=== PATIENT | female | born 1985 | race Caucasian/White ===

== ENCOUNTER 2017-09-27 09:31 | Emergency (ER) | payer OTHER ==
[~2017-09-27] VITALS: Ht 165.1 cm; Wt 140.3 kg
[2017-09-27 09:31] VITALS: BP 133/98
== END 2017-09-27 10:46 | disposition home or self-care (01) ==
LOC: M ED 09:31
DX: J02.9 Acute pharyngitis, unspecified (principal); Z87.891 Personal history of nicotine dependence

== ENCOUNTER → 2017-11-27 | Outpatient (REF) | payer OTHER | LOC: M SFHCWAGY 11:15 | DX: Z12.4 Encounter for screening for malignant neoplasm of cervix (principal) ==

== ENCOUNTER 2018-01-14 09:52 | Emergency (ER) | payer OTHER | END 2018-01-14 12:05 | disposition home or self-care (01) | LOC: M ED 09:52 | DX: S93.402A Sprain of unspecified ligament of left ankle, initial encounter (principal); S93.602A Unspecified sprain of left foot, initial encounter; X50.0XXA Overexertion from strenuous movement or load, initial encounter; Y92.410 Unspecified street and highway as the place of occurrence of the external cause; Z87.891 Personal history of nicotine dependence | CPT/HCPCS: 73610 ==

== ENCOUNTER → 2018-06-03 | Outpatient (REF) | payer OTHER ==
[2018-06-03 17:52] LABS: HEMATOCRIT 39.8 % (36.0-47.0)
[2018-06-03 19:02] LABS: FREE T4 0.89 NG/DL (0.76-1.46)
== END ==
LOC: M SFHCWAGY 15:21
DX: N92.0 Excessive and frequent menstruation with regular cycle (principal)
CPT/HCPCS: 84443

== ENCOUNTER → 2018-06-07 | Outpatient (CLI) | payer OTHER | LOC: M WHC 13:59 | DX: N92.0 Excessive and frequent menstruation with regular cycle (principal); Z97.5 Presence of (intrauterine) contraceptive device; N94.6 Dysmenorrhea, unspecified | CPT/HCPCS: 76830 ==

== ENCOUNTER → 2021-10-22 | Outpatient (REF) | payer OTHER ==
[~2021-10-22] MED LIST: NAPR-837 PO
[2021-10-22 11:53] LABS: HEMATOCRIT 39.1 % (36.0-47.0); HEMOGLOBIN 13.4 g/dl (12.0-15.5); MEAN CORPUSCULAR HEMOGLOBIN 29.3 pg (27.0-33.0); MEAN CORPUSCULAR HGB CONC 34.3 g/dl (32.0-36.5); MEAN CORPUSCULAR VOLUME 85.4 fl (80.0-96.0); PLATELET COUNT, AUTOMATED 248 10^3/uL (150-450); RED BLOOD COUNT 4.58 10^6/uL (4.00-5.40)
[2021-10-22 12:57] LABS: HEMOGLOBIN A1c 5.1 %
[2021-10-22 13:15] LABS: HCG, SERUM QUANTITATIVE 26935 MIU/ML; HEPATITIS B SURFACE ANTIGEN NEGATIVE (NEGATIVE); HEPATITIS C VIRUS ABY INDEX 0.1 INDEX (<0.8); HIV 1&2 SCREEN CENTAUR NEGATIVE (NEGATIVE)
== END ==
LOC: M LAB REF 11:25
PROVIDERS: ATTEND Advanced Practice Midwife
DX: O36.80X0 Pregnancy with inconclusive fetal viability, not applicable or unspecified (principal); Z3A.00 Weeks of gestation of pregnancy not specified

== ENCOUNTER → 2021-11-06 | Outpatient (REF) | payer OTHER | LOC: M LAB REF 17:19 | PROVIDERS: ATTEND Obstetrics & Gynecology | DX: O36.80X0 Pregnancy with inconclusive fetal viability, not applicable or unspecified (principal) ==

== ENCOUNTER → 2022-08-06 | Outpatient (CLI) | payer OTHER ==
[2022-08-06 13:59] LABS: HEMATOCRIT 39.4 % (36.0-47.0); HEMOGLOBIN 12.7 g/dl (12.0-15.5); MEAN CORPUSCULAR HEMOGLOBIN 28.1 pg (27.0-33.0); MEAN CORPUSCULAR HGB CONC 32.2 g/dl (32.0-36.5); MEAN CORPUSCULAR VOLUME 87.2 fl (80.0-96.0); PLATELET COUNT, AUTOMATED 201 10^3/uL (150-450); RED BLOOD COUNT 4.52 10^6/uL (4.00-5.40); WHITE BLOOD COUNT 6.1 10^3/uL (4.0-10.0)
[2022-08-06 16:09] LABS: GC DNA AMPLIFICATION NEGATIVE (NEGATIVE)
[2022-08-06 22:31] LABS: HEPATITIS C VIRUS ABY INDEX < 0.0 INDEX (<0.8); HIV 1&2 SCREEN CENTAUR NEGATIVE (NEGATIVE)
== END ==
LOC: M PLALAB 10:25
PROVIDERS: ATTEND Obstetrics & Gynecology
DX: O34.211 Maternal care for low transverse scar from previous cesarean delivery (principal)

== ENCOUNTER → 2022-10-07 | Outpatient (CLI) | payer OTHER | LOC: M WHC 10:41 | PROVIDERS: ATTEND Specialist | DX: Z34.82 Encounter for supervision of other normal pregnancy, second trimester (principal) ==

== ENCOUNTER → 2022-11-14 | Outpatient (CLI) | payer OTHER | LOC: M WHC 09:25 | PROVIDERS: ATTEND Obstetrics & Gynecology | DX: Z36.2 Encounter for other antenatal screening follow-up (principal) ==

== ENCOUNTER → 2022-11-28 | Outpatient (CLI) | payer OTHER | LOC: M WHC 11:28 | PROVIDERS: ATTEND Obstetrics & Gynecology | DX: O36.8920 Maternal care for other specified fetal problems, second trimester, not applicable or unspecified (principal); Z3A.23 23 weeks gestation of pregnancy ==

== ENCOUNTER → 2022-12-31 | Outpatient (CLI) | payer OTHER ==
[~2022-12-31] MED LIST changes: +PNV1TABL16 PO
[2022-12-31 14:20] LABS: HEMATOCRIT 36.5 % (36.0-47.0); HEMOGLOBIN 11.8 g/dl (12.0-15.5); MEAN CORPUSCULAR HEMOGLOBIN 28.2 pg (27.0-33.0); MEAN CORPUSCULAR HGB CONC 32.3 g/dl (32.0-36.5); MEAN CORPUSCULAR VOLUME 87.3 fl (80.0-96.0); PLATELET COUNT, AUTOMATED 200 10^3/uL (150-450); RED BLOOD COUNT 4.18 10^6/uL (4.00-5.40); WHITE BLOOD COUNT 7.3 10^3/uL (4.0-10.0)
[2022-12-31 15:39] LABS: GC DNA AMPLIFICATION NEGATIVE (NEGATIVE)
== END ==
LOC: M PLALAB 10:49
PROVIDERS: ATTEND Specialist
DX: Z34.82 Encounter for supervision of other normal pregnancy, second trimester (principal)

== ENCOUNTER 2023-01-01 12:43 | Inpatient (IN) | payer OTHER ==
[~2023-01-01] VITALS: Ht 165.1 cm; Wt 128.2 kg
[~2023-01-01 12:43] MED LIST changes: -IBUP80TA PO; -PERCOCET PO; -PNV1TABL16 PO
[2023-01-01 13:06] VITALS: BP 145/73
[2023-01-01] MEDS ORDERED: PNV1TABL16 PO (13:16)
[2023-01-01] MEDS: BETAMETHASONE SOLUSPAN 6MG/ML 5ML VIAL IM SCH (13:40)
[2023-01-01] MEDS ORDERED: LR 1,000 ML IV ONE (14:30)
[2023-01-01] MEDS ORDERED: ceFAZolin SOD 3 GM in IV 1 EA IV ONE (15:00)
[2023-01-01] MEDS ORDERED: BICITRA 30ML SOLN UDC PO ONE (15:00)
[2023-01-01 15:04] LABS: HEMATOCRIT 38.1 % (36.0-47.0); HEMOGLOBIN 12.6 g/dl (12.0-15.5); MEAN CORPUSCULAR HEMOGLOBIN 28.6 pg (27.0-33.0); MEAN CORPUSCULAR HGB CONC 33.1 g/dl (32.0-36.5); MEAN CORPUSCULAR VOLUME 86.6 fl (80.0-96.0); PLATELET COUNT, AUTOMATED 198 10^3/uL (150-450); WHITE BLOOD COUNT 8.3 10^3/uL (4.0-10.0)
[2023-01-01] MEDS ORDERED: MORPHINE PRES-FREE INJ 10 MG/10 ML VIAL As Ordered ONE (15:07)
[2023-01-01] MEDS ORDERED: OXYTOCIN 30UNITS IN 0.9% NaCl 500ML IV BAG As Ordered ONE ×2 (15:09→16:38)
[2023-01-01] MEDS ORDERED: LACTATED RINGER'S 1000 ML IV STA (15:13)
[2023-01-01] MEDS ORDERED: ceFAZolin 2 GM/D5W 50 ML IV BAG As Ordered ONE (15:14)
[2023-01-01] MEDS ORDERED: ceFAZolin SOD 1 GM in D5W MINI-BAG PLUS 50 ML IV ONE (15:15)
[2023-01-01] MEDS ORDERED: ceFAZolin SOD 2 GM in IV 1 EA IV ONE (15:15)
[2023-01-01] MEDS ORDERED: BICITRA 30ML SOLN UDC As Ordered ONE (15:15)
[2023-01-01] MEDS ORDERED: TRANEXAMIC ACID INJection 1,000 MG in NS 100 ML IV PRN (15:15)
[2023-01-01] MEDS ORDERED: LR 1,000 ML IV SCH (15:15)
[2023-01-01] MEDS ORDERED: METHYLERGONOVINE MALEATE 0.2MG/ML 1ML VIAL IM PRN (15:15)
[2023-01-01] MEDS ORDERED: ONDANSETRON 4MG 2ML VIAL As Ordered ONE (15:53)
[2023-01-01] MEDS ORDERED: KETOROLAC 60MG 2ML VIAL As Ordered ONE (15:53)
[2023-01-01] MEDS ORDERED: OXYTOCIN INJ 10UNITS/ML 1ML VIAL As Ordered ONE (15:54)
[2023-01-01 16:09] LABS: CORD GAS ABE V -6.2; CORD GAS HCO3 V 20.1 MEQ/L; CORD GAS O2 SAT V 54.6 %; CORD GAS PCO2 V 42.6 mmHg; CORD GAS PH V 7.292 UNITS; CORD GAS PO2 V 24.5 mmHg; CORD GAS SBC V 18.4 MEQ/L; CORD GAS TCO2 V 21.4 MEQ/L
[2023-01-01 16:11] LABS: CORD GAS ABE A -7.4; CORD GAS HCO3 A 20.4 MEQ/L; CORD GAS O2 SAT A 63.1 %; CORD GAS PCO2 A 49.6 mmHg; CORD GAS PH A 7.233 UNITS; CORD GAS PO2 A 28.9 mmHg; CORD GAS SBC A 17.8 MEQ/L
[2023-01-01] MEDS ORDERED: ONDANSETRON 4MG 2ML VIAL IV PRN (16:40)
[2023-01-01] MEDS ORDERED: PERCOCET 5MG/325MG TAB PO PRN ×2 (16:40)
[2023-01-01] MEDS ORDERED: OXYTOCIN DRIP 30 UNITS in IV 1 EA IV SCH (16:40)
[2023-01-01] MEDS ORDERED: RHOGAM 300MCG (1500IU) INJ IM SCH (16:40)
[2023-01-01] MEDS ORDERED: SIMETHICONE 80MG CHEW TAB PO PRN (16:40)
[2023-01-01] MEDS ORDERED: MOM 30ML SUSPENSION UDC PO PRN (16:40)
[2023-01-01 19:30] VITALS: BP 125/67
[2023-01-01 20:00] VITALS: BP 131/81
[2023-01-01] MEDS: DOCUSATE SODIUM 100MG CAPSULE PO SCH (20:14)
[2023-01-01 20:30] VITALS: BP 121/59
[2023-01-01 21:30] VITALS: BP 119/57
[2023-01-01] MEDS: KETOROLAC 30 MG/ML 1ML VIAL IV SCH (21:56)
[2023-01-01] MEDS: LR 1,000 ML IV SCH (21:57)
[2023-01-01 22:30] VITALS: BP 123/59
[2023-01-02 02:00] VITALS: BP 109/64
[2023-01-02] MEDS: KETOROLAC 30 MG/ML 1ML VIAL IV SCH ×2 (03:58→10:09)
[2023-01-02 06:00] VITALS: BP 113/67
[2023-01-02] MEDS: LR 1,000 ML IV SCH ×2 (06:05→07:40)
[2023-01-02 06:19] LABS: HEMATOCRIT 29.1 % (36.0-47.0); MEAN CORPUSCULAR HEMOGLOBIN 29.1 pg (27.0-33.0); MEAN CORPUSCULAR HGB CONC 33.7 g/dl (32.0-36.5); MEAN CORPUSCULAR VOLUME 86.4 fl (80.0-96.0); PLATELET COUNT, AUTOMATED 188 10^3/uL (150-450); RED BLOOD COUNT 3.37 10^6/uL (4.00-5.40); WHITE BLOOD COUNT 11.4 10^3/uL (4.0-10.0)
[2023-01-02 06:28] LABS: HEMOGLOBIN 9.8 g/dl (12.0-15.5)
[2023-01-02] MEDS ORDERED: IBUP80TA PO (06:51)
[2023-01-02] MEDS ORDERED: PERCOCET PO (06:51)
[2023-01-02] MEDS: PRENATAL VITAMINS CHEWABLE TABLET PO SCH (09:35)
[2023-01-02] MEDS: DOCUSATE SODIUM 100MG CAPSULE PO SCH ×2 (09:35→19:37)
[2023-01-02 10:00] VITALS: BP 110/61
[2023-01-02 14:00] VITALS: BP 112/60
[2023-01-02] MEDS: BETAMETHASONE SOLUSPAN 6MG/ML 5ML VIAL IM SCH (14:00)
[2023-01-02] MEDS: IBUPROFEN 800 MG TAB PO SCH (17:45)
[2023-01-02 18:00] VITALS: BP 118/58
[2023-01-02 22:30] VITALS: BP 119/64
[2023-01-03] MEDS: IBUPROFEN 800 MG TAB PO SCH ×2 (02:09→09:41)
[2023-01-03 02:17] VITALS: BP 109/58
[2023-01-03 05:50] VITALS: BP 102/59
[2023-01-03] MEDS ORDERED: MEASLES,MUMPS,RUBELLA VACCINE INJ (MMR-II) SC.IMMUN ONE (09:00)
[2023-01-03] MEDS: PRENATAL VITAMINS CHEWABLE TABLET PO SCH (09:40)
[2023-01-03] MEDS: DOCUSATE SODIUM 100MG CAPSULE PO SCH (09:40)
[2023-01-03 10:00] VITALS: BP 126/68
== END 2023-01-03 12:50 | disposition home or self-care (01) | DRG 540 ==
LOC: M LDO 12:43 → M LDI 14:51 → M OBS 19:34
PROVIDERS: ADMIT Obstetrics & Gynecology; ATTEND Obstetrics & Gynecology
PROC: 10D00Z1 Extraction of Products of Conception, Low, Open Approach (ICD-10-PCS; principal; 2023-01-01 15:52)
DX: O36.5930 Maternal care for other known or suspected poor fetal growth, third trimester, not applicable or unspecified (principal); O32.1XX0 Maternal care for breech presentation, not applicable or unspecified; Z3A.30 30 weeks gestation of pregnancy; O36.8330 Maternal care for abnormalities of the fetal heart rate or rhythm, third trimester, not applicable or unspecified; O34.211 Maternal care for low transverse scar from previous cesarean delivery; Z37.0 Single live birth; O09.523 Supervision of elderly multigravida, third trimester; O99.214 Obesity complicating childbirth; E66.9 Obesity, unspecified

== ENCOUNTER → 2023-01-01 | Outpatient (CLI) | payer OTHER ==
[~2023-01-01] MED LIST changes: +IBUP80TA PO; +PERCOCET PO
== END ==
LOC: M RAD 10:25
PROVIDERS: ATTEND Specialist
DX: O36.5990 Maternal care for other known or suspected poor fetal growth, unspecified trimester, not applicable or unspecified (principal)

== ENCOUNTER → 2023-06-10 | Outpatient (REF) | payer OTHER ==
[~2023-06-10] MED LIST changes: +IBUP80TA PO; +PERCOCET PO; +PNV1TABL16 PO
== END ==
LOC: M SFHCWAGY 09:58
PROVIDERS: ATTEND Obstetrics & Gynecology
DX: Z01.419 Encounter for gynecological examination (general) (routine) without abnormal findings (principal)

== ENCOUNTER → 2023-06-24 | Outpatient (CLI) | payer OTHER | LOC: M WHC 11:41 | PROVIDERS: ATTEND Obstetrics & Gynecology | DX: N93.8 Other specified abnormal uterine and vaginal bleeding (principal) ==

== ENCOUNTER → 2023-06-24 | Outpatient (CLI) | payer OTHER ==
[2023-06-24 16:10] LABS: HEMATOCRIT 40.1 % (36.0-47.0); MEAN CORPUSCULAR HEMOGLOBIN 28.4 pg (27.0-33.0); MEAN CORPUSCULAR HGB CONC 32.4 g/dl (32.0-36.5); MEAN CORPUSCULAR VOLUME 87.6 fl (80.0-96.0); PLATELET COUNT, AUTOMATED 255 10^3/uL (150-450); RED BLOOD COUNT 4.58 10^6/uL (4.00-5.40); WHITE BLOOD COUNT 6.3 10^3/uL (4.0-10.0)
[2023-06-24 16:42] LABS: THYROID STIMULATING HORMONE 1.604 uIU/ML (0.55-4.78)
[2023-06-24 16:45] LABS: FREE T4 1.04 NG/DL (0.89-1.76)
== END ==
LOC: M PLALAB 11:48
PROVIDERS: ATTEND Obstetrics & Gynecology
DX: N93.8 Other specified abnormal uterine and vaginal bleeding (principal)

== ENCOUNTER 2023-07-10 08:33 | Day surgery (SDC) | payer OTHER ==
[~2023-07-10] VITALS: Ht 165.1 cm; Wt 123.0 kg
[~2023-07-10 08:33] MED LIST changes: +KETOROLAC 60MG 2ML VIAL As Ordered ONE; +LIDOCAINE 2% 100MG/5ML SDV (FOR ANES.) As Ordered ONE; +MIDAZOLAM INJ 2MG/2ML VIAL As Ordered ONE; +ONDANSETRON 4MG 2ML VIAL As Ordered ONE; +ROCURONIUM BROMIDE 50MG/5ML VIAL As Ordered ONE; +SUGAMMADEX SODIUM 500 MG/5 ML VIAL (BRIDION) As Ordered ONE; +UNRESOLVED CLARIFICATION ENTRY XX SCH; +fentaNYL 250 MCG/5 ML INJECTION As Ordered ONE; +propofoL 200 MG/20 ML VIAL As Ordered ONE
[2023-07-10] MEDS ORDERED: LR 1,000 ML IV SCH ×2 (08:40→12:30)
[2023-07-10] MEDS ORDERED: ceFAZolin SOD 1 GM in D5W MINI-BAG PLUS 50 ML IV ONE (08:55)
[2023-07-10] MEDS ORDERED: ceFAZolin SOD 2 GM in IV 1 EA IV ONE (09:00)
[2023-07-10 09:18] LABS: HEMATOCRIT 38.3 % (36.0-47.0); HEMOGLOBIN 12.6 g/dl (12.0-15.5); MEAN CORPUSCULAR HEMOGLOBIN 27.8 pg (27.0-33.0); MEAN CORPUSCULAR HGB CONC 32.9 g/dl (32.0-36.5); MEAN CORPUSCULAR VOLUME 84.5 fl (80.0-96.0); PLATELET COUNT, AUTOMATED 235 10^3/uL (150-450); RED BLOOD COUNT 4.53 10^6/uL (4.00-5.40); WHITE BLOOD COUNT 5.8 10^3/uL (4.0-10.0)
[2023-07-10] MEDS ORDERED: ACETAMINOPHEN 1000MG 100ML IV BAG As Ordered ONE (10:36)
[2023-07-10] MEDS ORDERED: HYDROMORPHONE HCL 0.5 MG/ 0.5 ML SYRINGE IV PRN (12:30)
[2023-07-10] MEDS ORDERED: ONDANSETRON 4MG 2ML VIAL IV PRN (12:30)
[2023-07-10] MEDS ORDERED: fentaNYL 100 MCG/2 ML INJECTION IV PRN (12:30)
[2023-07-10] MEDS ORDERED: PERCOCET 5MG/325MG TAB PO PRN (12:40)
[2023-07-10] MEDS: oxyCODONE 5MG TAB PO PRN ×2 (13:22→13:56)
[2023-07-10 14:35] VITALS: BP 130/66; TEMP 97.2; O2SAT 100
[2023-07-10] MEDS ORDERED: KETOROLAC 30 MG/ML 1ML VIAL IV SCH (18:00)
== END 2023-07-10 14:46 | disposition home or self-care (01) ==
LOC: M SDC 08:33
PROVIDERS: ATTEND Obstetrics & Gynecology
DX: D25.9 Leiomyoma of uterus, unspecified (principal); N93.9 Abnormal uterine and vaginal bleeding, unspecified; N94.6 Dysmenorrhea, unspecified; Z87.891 Personal history of nicotine dependence
CPT/HCPCS: 36415; 58573; 81025; 85027; 86850; 86900; 86901; 88307; J0131; J0665; J0690; J1100; J1885; J2250; J2405; J3010; S2900